=== PATIENT | female | born 1985 | race Caucasian/White ===

== ENCOUNTER 2021-03-22 00:08 | Day surgery (SDC) | payer OTHER, SELFPAY ==
[2021-03-09 10:32] VITALS: BMI 28.6
[2021-03-22] VITALS (9 sets, daily range): BP systolic 103–128; BP diastolic 63–78; PULSE 80–116; RESP 13–23; TEMP 36.3–37.5; O2SAT 94–100
[2021-03-22 10:29] LABS: Urine Cotinine NEGATIVE
[2021-03-22] MEDS: LACTATED RINGERS 1,000 ML 30 ML IV CONT ×2 (10:35→16:41)
--- NOTE | 2021-03-22 11:59 | WPDHPUPDATE1 ---
History and Physical Update Update Date/Time: 03/22/21 11:59 History and Physical has been reviewed, including an updated exam of the patient. There are NO changes in the patient's condition. Risks, benefits, and alternatives have been discussed and questions answered. Patient agrees to proceed with procedure.
--- NOTE | 2021-03-22 12:01 | WPDANESEPPF ---
Anes - Initial Pre Proc Eval Procedure: Operation Date: 03/22/21 12:00 Proposed Procedures p Abdominoplasty - Kevin Mercer MD s Liposuction Abdomen - Kevin Mercer MD Date/Time: 03/22/21 12:01 Surgeon: Kevin Mercer MD Pre Op Diagnosis: skin laxity Patient Data Age: 35 Gender: F Height: 1.65 m Weight: 78.8 kg Last Vital Signs Temp 99.1 F 03/22/21 10:23 Pulse 83 03/22/21 10:23 Resp 18 03/22/21 10:23 BP 113/69 03/22/21 10:23 Pulse Ox 98 03/22/21 10:23 Allergies Allergy/AdvReac Type Severity Reaction Status Date / Time No Known Allergies Allergy Verified 03/22/21 10:17 Home Medications Medication Instructions Recorded Confirmed Type levonorgestrel 20 mcg/24 hours (6 1 device INTRAUTERINE ONCE 01/04/21 03/22/21 History yrs) 52 mg intrauterine device omega-3 fatty acids 1,000 mg 1,000 mg PO DAILY 01/04/21 03/22/21 History capsule docusate sodium 100 mg capsule 100 mg PO DAILY #14 cap 03/06/21 03/22/21 Rx ondansetron HCl 4 mg tablet 4 mg PO Q8H #21 tablet 03/06/21 03/22/21 Rx carisoprodol 350 mg tablet 350 mg PO TID PRN #21 tablet 03/08/21 03/22/21 Rx oxycodone-acetaminophen 5 mg-325 1 tablet PO Q6H PRN #15 tablet 03/08/21 03/22/21 Rx mg tablet Laboratory Tests 03/22/21 10:11 Cotinine Negative Patient hx anesthesia problems: none Family hx anesthesia problems: none PMFSH Past Medical History Medical History (Updated 03/22/21 @ 12:00 by Krishan Eason MD) Anxiety Surgical History Surgical History History of Family History Family History Mother Parkinsons disease Social History Social History Smoking status: Never smoker Alcohol intake: never Living arrangements: with family Jonas Belcher Final PreProcedure Day of Procedure 03/22/21 12:01 Patient weight: normal Heart: regular rate and rhythm Lungs: clear to auscultation Airway: Mallampati scale class II Neurological: alert and oriented Last oral intake: >/= 8 hours ASA classification: II Emergent: no Anesthetic plan: proceed Anesthesia type and monitoring: general ETT and standard monitoring Informed Consent: The patient's anesthetic plan and its attendant risks and benefits were discussed with the patient/family/POA. Questions were solicited and answers provided to the satisfaction of the patient/family/POA.
--- NOTE | 2021-03-22 12:11 | WPDHPUPDATE1 ---
History and Physical Update Update Date/Time: 03/22/21 12:11 History and Physical has been reviewed, including an updated exam of the patient. There are NO changes in the patient's condition. Risks, benefits, and alternatives have been discussed and questions answered. Patient agrees to proceed with procedure.
[2021-03-22] MEDS: TRANEXAMIC ACID 1,000MG/ISO100 1,000 MG/100 ML BAG 200 MG IVPB (12:14)
[2021-03-22] MEDS: ceFAZolin 2 GM/D5W 50 ML 2 GM/50 ML BAG IVPB (12:14)
--- NOTE | 2021-03-22 12:15 | W.PM.PROC2 ---
Procedure Note - Detailed Date of Procedure 03/22/21 Pre-op Diagnosis skin laxity localized adiposity Post-op Diagnosis same Procedure Performed 1. Progressive tension abdominoplasty 2. Suction lipectomy of abdomen / flank Surgeon Kevin Mercer MD Anesthesia general Findings Lipoaspirate 2650 cc Abdominal tissue removed 1823 grams Description of Procedure She is here today for abdominoplasty. Previously and again today the risks, benefits, alternatives were discussed in extensive detail. I wanted her to be very realistic about the risks involved as well as expectations. We discussed aftercare and what to monitor for. I was very upfront about the risks of wound breakdown leading to loss of skin, open wounds, and need for additional procedures with permanent abdominal deformity. We discussed DVT/PE risks and management. Made sure answered all of her questions to her satisfaction today and consent was obtained. She was marked in the preoperative holding area with their verification. The patient was taken to the operating room placed supine on the operating table. Anesthesia was provided by anesthesiology. A phillip catheter was started. She was prepped and draped in a standard sterile fashion. A surgical time-out was taken. I placed the patient in a flexed position to verify the upper and lower markings would reach. I then placed her supine. A thorough abdominal examination was completed. Stab incisions were made and used tumescent solution. I began with suction lipectomy of abdomen and flank using a 4 mm basket cannula based on S.A.F.E. technique. This was in multiple planes and passes. She was turned to bilateral lateral decubuitus positions during this to ensure optimal couture based on preoperative planning, intraoperative observations, and rolling pinch test. A 10 blade was used to make the upper incision. I continued dissection down to the level of fascia. Elevated just what was necessary for repair of the diastasis, no undermining otherwise. I then again flexed the bed to verify the upper skin flap would reach the lower markings without tension. Once verified I placed her supine once again and a 10 blade used to make the lower incision. I elevated up to level the umbilicus and left the umbilicus intact on a well-vascularized stalk. The intervening tissue was removed. A 2 mm blunt cannula and 0.5% bupivacaine with epi was injected deep to the fascia bilaterally as well as along the incision lines. I plicated the diastasis recti using 0 PDO stratafix barbed suture. This was in 2 separate layers using 2 separate sutures as well. I repaired around the umbilicus leaving plenty of room for well-vascularized stalk of the umbilicus with 2-0 PDS. The patient was flexed and starting from superior to inferior began plication using 2-0 Vicryl to obliterate all space in a standard progressive tension fashion. At the umbilicus I marked out the location of the skin and inset this with 3-0 Monocryl and 4-0 Vicryl. I continued the remainder of the plication using 2-0 Vicryl until I reached my lower planned scar line. I trimmed any excess skin of the upper flap making sure this was a tension-free closure. I then approximated using a 3 point suture with 2-0 Vicryl followed by 3-0 stratafix ,running subcuticular 4-0 Monocryl, and tissue glue. Fluffs and an abdominal binder were placed. The patient was transferred to the bed in a flexed position. Awoken and taken to the PACU without difficulty. All instrument and sponge counts were correct at the end of the case. Estimated Blood Loss 100 Drains No Packing No Pathology none sent Complications No immediate complications Condition stable Disposition PACU
[2021-03-22] MEDS: LACTATED RINGERS IRRIG 1,000 ML, LIDOCAINE HCL 1% LOCAL INJ 50 ML, EPINEPHrine HCL INJ ... INFILTRATE ×4 (13:21→13:45)
[2021-03-22] MEDS: BUPIVACAINE/EPINEPHRINE 0.5% 10 ML VIAL 50 ML INFILTRATE (14:29)
[2021-03-22] MEDS: ceFAZolin SODIUM 1 GM VIAL IV PUSH (16:19)
[2021-03-22] MEDS: fentaNYL CITRATE INJ (*CRX) 100 MCG/2 ML VIAL 25 MCG IV PUSH ×3 (16:55→17:45)
--- NOTE | 2021-03-22 17:25 | SUR.PHASEI ---
OCCASIONAL PVC'S NOTED PER MONITOR. NO SOB/CHEST PAIN REPORTED PER PT. DR. SHERIDAN AWARE.
--- NOTE | 2021-03-22 18:02 | PC.NURSE ---
This patient, Stefan German, was received from PACU per bed to room 289. Patient/family oriented to unit policies and routines
[2021-03-22] MEDS: LACTATED RINGERS 1,000 ML 125 ML IV CONT (18:29)
[2021-03-22] MEDS: carisoprodoL (*CRX) 350 MG TABLET PO ×2 (18:29→23:49)
[2021-03-22] MEDS: oxyCODONE/ACETAMINOPHEN (*CRX) 5-325 MG TABLET PO (21:20)
[2021-03-22] MEDS: DOCUSATE SODIUM 100 MG CAPSULE PO (21:20)
[2021-03-22] MEDS: ENOXAPARIN 40 MG/0.4 ML SYRINGE SUB-Q (23:50)
[2021-03-22] MEDS: MORPHINE SULFATE (*CRX) 2 MG/ML INJ IV PUSH (23:51)
[2021-03-23 05:15] VITALS: BP 95/59; PULSE 91; RESP 12; TEMP 37.3; O2SAT 97
[2021-03-23] MEDS: oxyCODONE/ACETAMINOPHEN (*CRX) 5-325 MG TABLET PO ×2 (05:15→10:50)
--- NOTE | 2021-03-23 06:59 | WPDPN ---
Progress Note: A&P Assessment and Plan (1) Skin laxity: Code(s): L57.4 - Cutis laxa senilis Status: Acute Assessment and Plan: She is doing very well after progressive tension abdominoplasty and suction lipectomy of abdomen /flank. Will discharge home. Follow-up 1 week. Today we had a lengthy discussion about the care. Activity limitations. What to monitor for. Made sure answered all of her questions to her satisfaction. We discussed what is a medical emergency. How to manage. All questions are answered. I will see her back. Call with any questions or concerns in the meantime. (2) Localized adiposity: Code(s): E65 - Localized adiposity Status: Acute Time Spent With Patient Time with patient: 25 - 35 minutes Subjective Date/time seen: 03/23/21 06:59 She is doing very well after progressive tension abdominoplasty with suction lipectomy of the abdomen. Pain is controlled. She has ambulated. Tolerating some diet. No nausea vomiting. No fevers or chills. No shortness of breath. No chest pain. No calf tenderness. Review of Systems Review of Systems: All systems reviewed & are unremarkable except as noted in HPI and below Exam Narrative: Exam Narrative: Abdomen is healing well. No signs of infection. No hematoma. No seroma. Good color and capillary refill. No calf tenderness. Negative Homans. Const: General: comfortable, no acute distress, alert and awake; No acute distress Orientation/consciousness: oriented to person HENMT: Head: normal to inspection Ears: external ears normal General nose exam: Normal external nose present Face and sinus: normal facial exam Eyes: General: appearance normal, both eyes and all related structures Periorbital: periorbital findings normal Eyelids: eyelids normal Conjunctivae: conjunctivae normal Neck: Neck: normal visual inspection Chest: Chest palpation & inspection: normal inspection of the chest Resp: Effort & Inspection: normal respiratory effort and able to speak in complete sentences GI: Inspection: normal to inspection Neuro: General: oriented to person Psych: Appearance: grossly normal Mental Status: mental status grossly normal Objective Data Vital Signs Vital Signs: Vital Signs - 24 hr 03/22/21 10:23 03/22/21 16:41 03/22/21 16:55 Temperature 37.3 C 36.3 C L Pulse Rate 83 80 84 Respiratory Rate 18 16 13 Blood Pressure 113/69 115/63 122/68 Pulse Oximetry 98 98 100 03/22/21 17:10 03/22/21 17:25 03/22/21 17:40 Temperature Pulse Rate 95 95 87 Respiratory Rate 16 23 H 15 Blood Pressure 123/78 128/76 117/76 Pulse Oximetry 100 94 96 03/22/21 18:30 03/22/21 20:25 03/22/21 23:35 Temperature 36.4 C 37.5 C 37.2 C Pulse Rate 85 103 H 116 H Respiratory Rate 16 16 13 Blood Pressure 103/69 108/69 106/65 Pulse Oximetry 95 99 97 Intake/Output Intake/Output: Intake & Output 03/20/21 03/21/21 03/22/21 03/23/21 23:59 23:59 23:59 23:59 Intake Total 1000 Output Total 970 Balance 30 Meds/Results Medications: Active Medications Generic Name Dose Route Start Last Admin Trade Name Freq PRN Reason Stop Dose Admin Carisoprodol 350 mg 03/22/21 18:00 03/22/21 23:49 Carisoprodol (*Crx) 350 Mg Tablet PO 350 mg Q6HR DEMETRIUS Administration Docusate Sodium 100 mg 03/22/21 21:00 03/22/21 21:20 Docusate Sodium 100 Mg Capsule PO 100 mg Q12HR DEMETRIUS Administration Enoxaparin Sodium 40 mg 03/22/21 23:00 03/22/21 23:50 Enoxaparin 40 Mg/0.4 Ml Syringe SUB-Q 40 mg Q24H DEMETRIUS Administration Lactated Ringer's 1,000 mls @ 125 mls/hr 03/22/21 16:20 03/22/21 18:29 Lr - Lactated Ringers Iv IV CONT 125 mls/hr .Q8H DEMETRIUS Administration Morphine Sulfate 2 mg 03/22/21 16:17 03/22/21 23:51 Morphine Sulfate (*Crx) 2 Mg/Ml Inj IV PUSH 2 mg Q2H PRN Administration Pain Ondansetron HCl 4 mg 03/22/21 16:17 Ondansetron Inj 4 Mg/2 Ml Vial IV PUSH Q6
[2021-03-23] MEDS: carisoprodoL (*CRX) 350 MG TABLET PO ×2 (07:02→12:19)
[2021-03-23] MEDS: DOCUSATE SODIUM 100 MG CAPSULE PO (07:02)
--- NOTE | 2021-03-23 07:04 | PM.DS ---
DS: Admitting Diagnosis Admitting Diagnosis Admitting Diagnosis: Skin laxity Localized adiposity DS: Discharge Diagnosis Discharge Diagnosis (1) Skin laxity: Code(s): L57.4 - Cutis laxa senilis Status: Acute (2) Localized adiposity: Code(s): E65 - Localized adiposity Status: Acute DS: Summary Hospital Course Hospital Course: She underwent abdominoplasty with suction lipectomy of abdomen. Postoperatively she has done very well. Tolerating diet. Ambulating. Pain controlled. Will discharge home. Follow-up. Call with any questions or concerns. Time Spent with Patient Time attestation: Total time spent providing and/or coordinating discharge services: Exam Narrative: Exam Narrative: Abdomen is healing well. No signs of infection. No hematoma. No seroma. Good color and capillary refill. No calf tenderness. Negative Homans. Const: General: comfortable, no acute distress, alert and awake; No acute distress Orientation/consciousness: oriented to person HENMT: Head: normal to inspection Ears: external ears normal General nose exam: Normal external nose present Face and sinus: normal facial exam Eyes: General: appearance normal, both eyes and all related structures Periorbital: periorbital findings normal Eyelids: eyelids normal Conjunctivae: conjunctivae normal Neck: Neck: normal visual inspection Chest: Chest palpation & inspection: normal inspection of the chest Resp: Effort & Inspection: normal respiratory effort and able to speak in complete sentences GI: Inspection: normal to inspection Neuro: General: oriented to person Psych: Appearance: grossly normal Mental Status: mental status grossly normal DS: Data Data Completed and Pending Labs on day of discharge: Labs from last 24 hours 03/22/21 10:11 Cotinine Negative Discharge Plan Discharge Patient Disposition: Home, Self-Care Discharge Instructions: POST OPERATIVE DISCHARGE INSTRUCTIONS FOR KEVIN MERCER M.D. [facility] [id number] [place] [address] [address] for 24 hours after anesthesia and while you are taking pain medication. Take all prescribed medication as directed Diet as tolerated. No lifting or activity that raises blood pressure for 48 hours. Regular walking / ambulation. No showering until directed to. Once you shower do not take pain medication before showering as the combination of medication and heat may cause you to feel dizzy or pass out. No pools or tubs for 2 weeks. Call with any questions or concerns. Slowly stand up straight as tolerated over the week. No straining or lifting more than 20 pounds. Dressing Care: If you have any questions or concerns, please call the office . If it is after hours you will be directed to the concession cashier exchange. Shortness of breath, chest pain, or other medical emergency dial 911 / proceed to the Emergency Room. Stand Alone Forms: General Discharge Instructions Follow-up/Referrals: Kevin Mercer MD [Physician] - 1 Week Discharge Medications: Continued docusate sodium [Colace] 100 mg capsule 100 mg PO DAILY Qty: 14 RF: 0 ondansetron HCl [Zofran] 4 mg tablet 4 mg PO Q8H Qty: 21 RF: 0 oxycodone-acetaminophen [Percocet] 5-325 mg tablet 1 tablet PO Q6H PRN (Reason: pain) Qty: 15 RF: 0 carisoprodol [Soma] 350 mg tablet 350 mg PO TID PRN (Reason: muscle pain) Qty: 21 RF: 0 omega-3 fatty acids [Fish Oil Concentrate] 1,000 mg capsule 1,000 mg PO DAILY RF: 0 Mirena 20 mcg/24 hours (6 yrs) 52 mg intrauterine device 1 device intrauterine ONCE RF: 0
[2021-03-23 09:00] VITALS: BP 108/71; PULSE 95; RESP 16; TEMP 37.2; O2SAT 97
--- NOTE | 2021-03-23 09:30 | WPDANESPN ---
Anes - Prog Note Post-Op Date/Time: 03/23/21 09:30 Cardiovascular status: normal Respiratory status: normal Airway patency: baseline Mental status: baseline Post-Op hydration status: normal Vital Signs: Last Vital Signs Temp 37.3 C 03/23/21 05:15 Pulse 91 03/23/21 05:15 Resp 12 03/23/21 05:15 BP 95/59 L 03/23/21 05:15 Pulse Ox 97 03/23/21 05:15 Pain Score (VAS): 5 I/O: Intake & Output 03/22/21 03/23/21 03/23/21 23:59 07:59 15:59 Intake Total 850 200 Output Total 970 1125 Balance -120 -925 03/22/21 10:11 Cotinine Negative Post-procedural complaints: none Patient Feedback: Patient satisfied with anesthetic care.
== END 2021-03-23 12:29 | disposition home or self-care (01) ==
LOC: ANHSURGERY 12:21 → ANHOB2 17:51
PROVIDERS: Visit Provider Surgery Plastic and Reconstructive Surgery
PROC: (CPT 15830; principal; 2021-03-22 12:00)
PROC: (CPT 15877; 2021-03-22 12:00)
DX: Z41.1 Encounter for cosmetic surgery (principal); L57.4 Cutis laxa senilis; E65 Localized adiposity; F41.9 Anxiety disorder, unspecified; Z79.899 Other long term (current) drug therapy
CPT/HCPCS: 15830; 15847; 15877; 80307; 99199; A9270; C9290; J0171; J0690; J1650; J2250; J2270; J3010; J7120

== ENCOUNTER 2022-06-02 18:47 | Emergency (ER) | payer BC, SELFPAY ==
[2022-06-02] VITALS (18 sets, daily range): BP systolic 103–127; BP diastolic 67–92; PULSE 74–103; RESP 10–18; TEMP 36.4–36.8; O2SAT 97–100
--- NOTE | ~2022-06-02 | XR_ITS ---
EXAMINATION: XR chest 2V Exam Date/Time: 06/02/2022 19:25 CDT HISTORY: chest pain MIDSTERNAL AREA, NO CARDAC HX, NO LUNG HX Comparison: None available. RESULT: Lines, tubes, and devices: None. Lungs and pleura: Clear. Cardiomediastinal silhouette: Normal. Other: No acute osseous or upper abdominal finding. IMPRESSION: No acute cardiopulmonary process. Reviewed, dictated and finalized at location K.
--- NOTE | 2022-06-02 18:51 | ECG_ITS ---
Measurements Intervals [place] Rate: 73 P: 66 WI: 155 QRS: 40 QRSD: 90 T: 46 QT: 353 QTc: 390 Interpretive Statements SINUS RHYTHM INCOMPLETE RIGHT BUNDLE BRANCH BLOCK BASELINE ARTIFACT- II, III, AVR, AVL, AVF, V1 BORDERLINE ECG NO PREVIOUS ECG AVAILABLE FOR COMPARISON Electronically Signed On 06-03-2022 6:24:31 CDT by Armin Calixto D.O.
[2022-06-02 19:03] LABS: Basophils Absolute Auto 0.1 K/mm3 (0.0-0.1); Basophils Percent Auto 0.7 % (0.2-1.2); Eosinophils Absolute Auto 0.2 K/mm3 (0-0.3); Eosinophils Percent Auto 2.2 % (0-4.4); Hematocrit 41.8 % (37.0-47.0); Hemoglobin 14.7 g/dL (12.0-15.0); Immature Granulocyte Absolute 0.01 K/mm3 (0.00-0.031); Immature Granulocyte Percent A 0.1 % (0-0.5); Lymphocytes Absolute Auto 2.38 K/mm3 (0.9-3.2); Lymphocytes Percent Auto 32.6 % (18.3-44.2); Mean Corpuscular HGB Conc 35.2 g/dl (32-36); Mean Corpuscular Hemoglobin 32.7 pg (26-34); Mean Corpuscular Volume 93.1 fl (80-100); Mean Platelet Volume 10.1 fl (7.4-10.4); Monocytes Absolute Auto 0.5 K/mm3 (0.1-0.6); Monocytes Percent Auto 6.7 % (2.6-8.5); Neutrophils Absolute Auto 4.2 K/mm3 (1.3-6.7); Neutrophils Percent Auto 57.7 % (45.5-73.1); Platelet Count Result 245 k/mm3 (150-375); Red Blood Count 4.49 M/mm3 (4.2-5.4); Red Cell Distribution Width 11.9 % (11.5-14.5); White Blood Count 7.3 K/mm3 (4.5-10.0)
[2022-06-02 19:15] LABS: Alanine Aminotransferase 23 U/L (6-35); Albumin Level 4.9 g/dL (3.5-5.1); Alkaline Phosphatase 56 U/L (38-126); Anion Gap 13 mmol/L (8-16); Aspartate Amino Transferase 26 U/L (14-36); Bilirubin,Total 0.5 mg/dL (0.2-1.3); Blood Urea Nitrogen 17 mg/dL (7-17); Calcium 9.8 mg/dL (8.4-10.2); Carbon Dioxide 25 mmol/L (22-30); Chloride 102 mmol/L (98-107); Estimated Glomerular Filt Rate > 60; Glucose 110 mg/dL (65-110); Lipase 104 U/L (23-300); Potassium 3.7 mmol/L (3.4-5.0); Sodium 140 mmol/L (137-145)
--- NOTE | 2022-06-02 19:15 | ED.CHESTPAIN ---
HPI - Chest Pain General Chief Complaint: Chest Pain Stated Complaint: chest pain Time Seen by Provider: 06/02/22 19:04 Source: RN notes reviewed History of Present Illness HPI narrative: Patient presents emergency department from home for chest pain. Patient states chest pain began approximately 4 days ago. The pain is located the midsternal chest and does not radiate is described as a pressure. Patient states the pain waxes and wanes in intensity and states it does improve when she lays down flat she denies any fevers or chills she has mild shortness of breath and the pain becomes severe she denies any abdominal pain nausea vomiting diarrhea or any other symptoms Related Data Home Medications Medication Instructions Recorded Confirmed levonorgestrel 20 mcg/24 hours (7 1 device intrauterine ONCE 01/04/21 03/22/21 yrs) 52 mg intrauterine device (Mirena) omega-3 fatty acids 1,000 mg 1,000 mg PO DAILY 01/04/21 03/22/21 capsule (Fish Oil Concentrate) Allergies Allergy/AdvReac Type Severity Reaction Status Date / Time No Known Allergies Allergy Verified 08/01/21 10:02 Review of Systems Review of Systems: Gen.: Denies fevers or chills ENT: Denies congestion Respiratory: Denies shortness of breath or cough CV: See HPI GI: Denies abdominal pain nausea, emesis or diarrhea Musculoskeletal: Denies back pain or muscle pain Neuro: Denies numbness, tingling, weakness or focal weakness Skin: Denies rash Except as documented, all other systems reviewed and negative PMFSH Past Medical History Medical History Anxiety Surgical History Surgical History History of Family History Family History Mother Parkinsons disease Social History Social History Smoking status: Unknown if ever smoked Alcohol intake: never Exam Narrative: APPEARANCE: No acute distress, nontoxic, resting in bed EYES: EOMI HEENT: Normocephalic, atraumatic, OMM RESPIRATORY: No respiratory distress Clear to auscultation bilaterally with no rhonchi wheezing or rales. CARDIOVASCULAR: Regular rate and rhythm without murmurs rubs or gallops. ABDOMINAL: Soft, nondistended tender palpation epigastric region no tenderness right upper quadrant, left upper quadrant right lower quadrant left lower quadrant no rebound or guarding MUSCULOSKELETAl: Moves all extremities. No clubbing, cyanosis or edema. NEURO: Awake and alert. Following commands, speech normal, no focal deficits SKIN:: Warm, dry. No rashes lesions or abrasions PSYCHIATRIC: Normal affect/mood, Course Course Emergency Course: Patient states she is feeling better at this time repeated nausea and still shows mild tenderness in epigastric region I discussed with the patient obtaining a CT scan of the abdomen pelvis we had a long discussion about the risks and benefits at this time with shared medical decision the patient wishes to not proceed with her CT scan of the abdomen pelvis and prefer to be discharged home and follow-up with her PCP Discussed with patient results of workup and diagnosis. Discussed need for follow-up with primary care, proper use of medication, and reasons to return to the emergency department. Patient understands and agrees to current treatment plan Vital Signs Vital signs: Vital Signs Temperature 98.3 F 06/02/22 18:48 Pulse Rate 102 H 06/02/22 18:48 Respiratory Rate 18 06/02/22 18:48 Blood Pressure 127/82 06/02/22 18:48 Pulse Oximetry 100 06/02/22 18:48 Oxygen Delivery Autopap 06/02/22 18:48 Temperature 97.9 F 06/02/22 22:55 Pulse Rate 75 06/02/22 22:55 Respiratory Rate 16 06/02/22 22:55 Blood Pressure 109/78 06/02/22 22:55 Pulse Oximetry 100 06/02/22 22:55 Oxygen Delivery Autopap 06/02/22 18:48 M
[2022-06-02 19:24] LABS: Partial Thromboplastin Time 31.1 SECONDS (22.3-36.8); Prothrombin Time 12.9 Seconds (11.1-14.7)
[2022-06-02 19:26] LABS: Troponin I < 0.012 ng/mL (0.000-0.034)
[2022-06-02 20:17] LABS: D Dimer < 0.27 ug/mL (<0.48)
[2022-06-02] MEDS: KETOROLAC 30 MG/ML VIAL (*BKC) IV PUSH (22:12)
[2022-06-02 22:31] LABS: Troponin I < 0.012 ng/mL (0.000-0.034)
== END 2022-06-02 23:43 | disposition home or self-care (01) ==
PROVIDERS: Emergency Medicine; Emergency Provider Emergency Medicine
DX: R07.89 Other chest pain (principal); R06.02 Shortness of breath
CPT/HCPCS: 36415; 71046; 80053; 83690; 84484; 85025; 85380; 85610; 85730; 93005; 96374; 99284; A9270; J1885